=== PATIENT | male | born 1965 | race Caucasian/White ===

== ENCOUNTER → 2018-02-22 19:05 | Outpatient (CLI) | payer BC, SELFPAY ==
--- NOTE | 2018-02-22 | DI.MRI.S_ITS ---
PROCEDURE: MR CERVICAL SPINE WO CON INDICATIONS: CERVICAL DISC DEGENERATION C5-C6 TECHNIQUE: Noncontrast sagittal T1 spin echo and T2 fast spin echo, sagittal STIR, foraminal oblique sagittal T2 fast spin echo, and axial gradient echo or T2 fast spin echo through the cervical spine. COMPARISON: [facility], , CERVICAL SPINE 2 OR 3 VIEWS, 01/08/2017, 12:09. FINDINGS: Image quality: Excellent. Alignment and Curvature: There is trace C7-T1 anterolisthesis. Bone Marrow: Mild reactive endplate changes noted adjacent to the C5-C6 and C6-C7 discs. Spinal Cord: Visualized spinal cord has normal size and signal. No cerebellar tonsillar herniation. Paraspinous Soft Tissues: No paravertebral masses. Prevertebral soft tissues are normal in thickness. C2-C3: Loss of disc signal. No central stenosis. No neural foraminal narrowing. No neural impingement. C3-C4: Loss of disc signal. Mild, diffuse disc bulge. Mild bilateral facet hypertrophy. Mild bilateral uncovertebral joint hypertrophy. No central stenosis. Severe bilateral neural foraminal narrowing a flattened deformity exiting C4 nerve roots. C4-C5: Loss of disc signal. Slight loss of disc height. Minimal, diffuse disc bulge. Mild bilateral facet hypertrophy. Mild bilateral uncovertebral joint hypertrophy. Mild right and severe left neural foraminal narrowing with flattening deformity exiting left C5 nerve root. C5-C6: Loss of disc signal and mild loss of disc height. Moderate, diffuse disc bulge. Mild narrowing of the central canal. Mild bilateral facet and uncovertebral joint hypertrophy. Moderate right and severe left neural foraminal narrowing with flattening deformity exiting left C6 nerve root. C6-C7: Loss of disc signal and height. Moderate, diffuse disc bulge. Mild narrowing of the central canal. Moderate bilateral uncovertebral joint hypertrophy. Severe bilateral neural foraminal narrowing with flattening deformity of the exiting C7 nerve roots. C7-T1: Loss of disc signal. No central stenosis. No neuroforaminal narrowing. No neural impingement. IMPRESSION: 1. Multilevel degenerative disc disease. 2. Multilevel facet arthropathy and uncovertebral joint hypertrophy. 3. Mild C5-C6 and C6-C7 central canal narrowing. 4. Severe bilateral C3-C4 and at C6-C7 neural foraminal narrowing. Mild right and severe left C4-C5 neural foraminal narrowing. Moderate right and severe left C5-C6 neural foraminal narrowing. 5. Flattened deformity of the exiting bilateral C4 nerve roots, the exiting left C5 nerve root, the exiting left C6 nerve root and the exiting bilateral C7 nerve root secondary to neural foraminal narrowing. Please correlate with clinical data. Dictated by: Laura Levin MD, PhD on 02/23/2018 at 22:25 Approved by: Laura Levin MD, PhD on 02/23/2018 at 22:31
== END ==
PROVIDERS: Family Provider Orthopaedic Surgery; Visit Provider Physical Medicine & Rehabilitation
DX: M50.322 Other cervical disc degeneration at C5-C6 level (principal); M47.812 Spondylosis without myelopathy or radiculopathy, cervical region; M48.02 Spinal stenosis, cervical region
CPT/HCPCS: 72141